=== PATIENT | female | born 1935 | race Hispanic/Latino ===

== ENCOUNTER 2017-06-26 09:13 | Emergency (ER) | payer MEDICARE, MEDICAID ==
--- NOTE | 2017-06-26 10:26 | RAD ---
AP PELVIS: Date: 06/26/17 HISTORY: Fall with pelvic pain. 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 The pelvic ring is intact without evidence of fracture. SI joints are symmetric. IMPRESSION: No evidence of fracture. POS: [facility]
--- NOTE | 2017-06-26 10:27 | RAD ---
PA CHEST AND LEFT RIBS 4 VIEWS: Date: 06/26/17 HISTORY: Fall with left rib pain. FINDINGS: Heart size is enlarged. There are atherosclerotic changes of the aorta. The lungs are clear of infilt rates. There are no signs of pneumothorax. No rib fractures are identified. IMPRESSION: Mild cardiomegaly. POS: [facility]
[2017-06-26 10:49] LABS: Bilirubin Negative (Negative); Blood, Urine Negative (Negative); Glucose, Urine (Dipstick) Negative (Negative); Ketone, Urine Negative (Negative); Nitrite Negative (Negative); Protein, Urine (Dipstick) Negative (Neg-Trace)
[2017-06-26] MEDS ORDERED: Acetaminophen 325 MG TAB ONE (11:24)
== END 2017-06-26 11:37 | disposition home or self-care (01) ==
LOC: SCSER 09:13
DX: S33.5XXA Sprain of ligaments of lumbar spine, initial encounter (principal); I10 Essential (primary) hypertension; M19.90 Unspecified osteoarthritis, unspecified site; E03.9 Hypothyroidism, unspecified; F41.9 Anxiety disorder, unspecified; Z79.52 Long term (current) use of systemic steroids; Z79.899 Other long term (current) drug therapy; W01.198A Fall on same level from slipping, tripping and stumbling with subsequent striking against other object, initial encounter
CPT/HCPCS: 72170; 81003

== ENCOUNTER 2017-07-10 11:30 | Emergency (ER) | payer MEDICARE, MEDICAID ==
[2017-07-10] MEDS ORDERED: Lorazepam 1 MG TAB ONE (11:49)
[2017-07-10 12:09] LABS: #Basophils 0.1 thou/uL (0.0-0.2); #Eosinphils 0.4 thou/uL (0.0-0.7); #Lymphocytes 1.3 thou/uL (1.20-3.40); #Monocytes 0.8 thou/uL (0.11-0.59); #Neutrophils 6.8 thou/uL (1.40-6.50); %Basophils 1.6 % (0.0-1.0); %Eosinophils 4.3 % (0.0-10.0); %Lymphocytes 13.5 % (21.0-51.0); %Monocytes 8.2 % (0.0-10.0); %Neutrophils 72.4 % (42.0-75.0); Hemoglobin 14.3 g/dL (12.0-16.0); Mean Corpuscular HGB CONC 33.1 g/dL (32.0-36.0); Mean Corpuscular Hemoglobin 28.8 pg (27.0-31.0); Mean Platelet Volume 6.6 fL (7.4-10.4); Platelet Count 342 thou/uL (130-400); RBC Distribution Width 11.5 % (11.5-14.5); Red Blood Cell (RBC) Count 4.97 mill/uL (4.20-5.40); White Blood Cell (WBC) Count 9.3 thou/uL (4.8-10.8)
[2017-07-10 12:18] LABS: ALT (SGPT) 14 U/L (8-55); AST (SGOT) 22 U/L (5-34); Albumin 4.2 g/dL (3.4-4.8); Alkaline Phosphatase 113 U/L (40-150); Anion Gap 14 mmol/L (10-20); BUN (Urea Nitrogen) 8 mg/dL (9.8-20.1); Bilirubin, Total 0.6 mg/dL (0.2-1.2); Calc. Creatinine Clearance 0 mL/min (70-130); Calcium 9.9 mg/dL (7.8-10.44); Carbon Dioxide 29 mmol/L (23-31); Chloride 94 mmol/L (98-107); Estimated GFR-MDRD 86; Globulin 3.4 g/dL (2.4-3.5); Glucose 109 mg/dL (83-110); Lipase 10 U/L (8-78); Potassium 3.7 mmol/L (3.5-5.1); Protein, Total 7.6 g/dL (6.0-8.3); Sodium 133 mmol/L (136-145)
--- NOTE | 2017-07-10 13:04 | CT ---
ABDOMEN CT WITH CONTRAST PELVIC CT WITH CONTRAST: History: Abdominal pain with radiation of the left lower back. Symptoms x 3 weeks. Comparison: None. Technique: Abdomen and pelvic CT are performed with IV contrast. Enteric contrast was not administere d. Coronal reformatted images are submitted for interpretation. FINDINGS: ABDOMEN CT: Incompletely evaluated 9 mm nodule in the right lung base. Heart size is within normal limits. No sig nificant pericardial effusion. There are pulmonary calcifications. The descending thoracic aorta and abdominal aorta have an overall normal caliber. No periaortic fat stranding. Symmetric attenuation of the psoas muscles. Intra and extrahepatic portal vein is patent. Gallbladder is surgically absent. Liver, spleen, pancreas, and adrenal glands have appropriate enhancement. No gastrohepatic, retrocrural, or periportal lymphadenopathy. Symmetric enhancement of the kidneys. Bilaterally, no obstructive uropathy. There is a ventral abdominal hernia containing mesenteric fat. No bowel herniation. No mesenteric mass, lymphadenopathy, or free air. Small amount of fluid in both pericolic gutters. Th ere is thickening and inflammation of the sigmoid colon. Limited evaluation of the alimentary canal due to lack of oral contrast. Gastric mucosa and duodenum are unremarkable. Multiple normal caliber small bowel loops. Normal ileocecal junction. Appendix is n ot appreciated. No inflammation of cecal apex. There is CT evidence of diverticulosis. There is mucos al thickening pericolonic fat stranding involving the distal descending colon. There is evidence for diverticulitis. No evidence of abscess or perforation. Additional diverticula and sigmoid colon are n oted without associated inflammatory change. There is a fracture involving the posterior left ribs. The exact location of the ribs is somewhat dif ficult to determine. Based upon conventional numbering, the posterior left 9th, 10th, and 11th ribs a re fractured. PELVIC CT: Uterus and adnexal structures are unremarkable. Urinary bladder is unremarkable. No pelvic mass, lymp hadenopathy, free air or free fluid. IMPRESSION: 1. Descending colon diverticulitis without associated perforation or abscess. 2. Ventral abdominal wall hernia containing mesenteric fat. 3. Inadequately evaluated 9 mm opacity in the right lung. 4. Posterior left rib fractures. 5. Dr. Leblanc was notified of the findings 07-10-17 at 12:58 p.m. POS: [facility]
[2017-07-10] MEDS ORDERED: metroNIDAZOLE 500 MG TAB ONE (13:17)
--- NOTE | 2017-08-15 17:33 | EKG ---
Test Reason : Blood Pressure : / mmHG Vent. Rate : 073 BPM Atrial Rate : 073 BPM P-R Int : 174 ms QRS Dur : 074 ms QT Int : 414 ms P-R-T Axes : -18 006 005 degrees QTc Int : 456 ms Normal sinus rhythm Possible Inferior infarct , age undetermined Cannot rule out Anterior infarct , age undetermined Abnormal ECG Confirmed by ERIC LIMA ([id number]), material expeditor LEANNE JIM ([id number]) on 08/15/2017 5:33:01 PM Referred By: Confirmed By:ERIC LIMA
== END 2017-07-10 15:02 | disposition home or self-care (01) ==
LOC: SCSER 11:30
DX: S22.42XA Multiple fractures of ribs, left side, initial encounter for closed fracture (principal); K57.92 Diverticulitis of intestine, part unspecified, without perforation or abscess without bleeding; E03.9 Hypothyroidism, unspecified; F41.9 Anxiety disorder, unspecified; I10 Essential (primary) hypertension; M19.90 Unspecified osteoarthritis, unspecified site; Z79.51 Long term (current) use of inhaled steroids; Z79.899 Other long term (current) drug therapy; W18.30XA Fall on same level, unspecified, initial encounter
CPT/HCPCS: 74177; 80053; 83690; 85025; 93005; 96365; J1956